=== PATIENT | female | born 1970 | race Caucasian/White ===

== ENCOUNTER → 2017-05-10 17:10 | Outpatient (CLI) | payer MEDICARE ==
[2015-11-24 20:10] VITALS: BMI 26.7
[~2017-05-10 17:10] MED LIST: DEPAKOTE500 MG PO; LEXAPRO20 MG PO
== END | disposition home or self-care (01) ==
LOC: D.MAMMO 04-06 16:15
DX: Z12.31 Encounter for screening mammogram for malignant neoplasm of breast (principal)

== ENCOUNTER → 2018-03-16 09:45 | Outpatient (CLI) | payer MEDICARE ==
[2015-11-24 20:10] VITALS: BMI 26.7
== END | disposition home or self-care (01) ==
LOC: D.CT 09:30
DX: D17.9 Benign lipomatous neoplasm, unspecified (principal)

== ENCOUNTER → 2018-03-23 15:12 | Outpatient (CLI) | payer MEDICARE ==
[2015-11-24 20:10] VITALS: BMI 26.7
== END | disposition home or self-care (01) ==
LOC: D.CT 14:30
DX: D17.9 Benign lipomatous neoplasm, unspecified (principal)